=== PATIENT | female | born 1985 | race African-American/Black ===

== ENCOUNTER 2021-04-05 19:50 | Emergency (ER) | payer OTHER, SELFPAY ==
[~2021-04-05] VITALS: Ht 162.6 cm; Wt 72.6 kg
[2021-04-05 20:07] VITALS: BP_SYST 116
--- NOTE | 2021-04-05 21:00 | NUR ---
Pt brought by self,A&Ox4, pt presents to ER with vaginal discomfort/ itching and burning with urination, pt denies vaginal bleeding, skin pink and warm, cap refill <3, VSS.
--- NOTE | 2021-04-05 22:00 | NUR ---
Patient to [facility] for evaluation.
[2021-04-05 22:31] LABS: BILIRUBIN,URINE NEGATIVE (NEGATIVE); BLOOD, URINE NEGATIVE (NEGATIVE); COLOR,URINE YELLOW (YELLOW); GLUCOSE,URINE NEGATIVE (NEGATIVE); KETONES,URINE NEGATIVE (NEGATIVE); LEUKOCYTE ESTERASE ,URINE NEGATIVE (NEGATIVE); NITRITE, URINE NEGATIVE (NEGATIVE); PROTEIN URINE TRACE (NEGATIVE); UROBILINOGEN,URINE 0.2 (0.2-1.0)
[2021-04-05 22:32] LABS: CLARITY/URINE HAZY (CLEAR)
--- NOTE | 2021-04-05 22:43 | NUR ---
ER Dr. Hill at bedside examining patient.
[2021-04-05 23:57] LABS: BACTERIA,URINE MANY /HPF (None Seen); WBC,URINE 0-3 /HPF (0-3)
[2021-04-05 23:58] LABS: MUCUS,URINE None Seen /LPF (None Seen)
[2021-04-06] MEDS ORDERED: METR-154 PO (00:02)
[2021-04-06] MEDS ORDERED: metroNIDAZOLE 500 MG TABLET ONE (00:10)
[2021-04-06 00:11] VITALS: BP_SYST 112
--- NOTE | 2021-04-06 00:11 | NUR ---
Patient given written and verbal discharge instructions and verbalizes understanding. ER MD discussed with patient the results and treatment provided. Patient in stable condition. ID arm band removed. Rx of metronidazole given. Patient educated on pain management and to follow up with PMD. Pain Scale 0/10 Opportunity for questions provided and answered. Medication side effect fact sheet provided.
[2021-04-06] MEDS ORDERED: metroNIDAZOLE 500 MG TABLET PO ONE (00:15)
== END 2021-04-06 00:11 | disposition home or self-care (01) ==
LOC: SED 19:50
DX: N76.0 Acute vaginitis (principal); Z88.1 Allergy status to other antibiotic agents
CPT/HCPCS: 81000; 81025; 87086; 87210-TC; 99283